=== PATIENT | female | born 1985 | race Caucasian/White ===

== ENCOUNTER 2023-10-31 09:10 | Day surgery (SDC) | payer BC ==
[2023-10-31] VITALS (7 sets, daily range): BP systolic 140–147; BP diastolic 74–83; PULSE 79–85; TEMP 97
[~2023-10-31] VITALS: Ht 172.7 cm; Wt 102.3 kg
[2023-10-31] MEDS ORDERED: Ketorolac 30 MG/ML VIAL IV ONE (09:45)
[2023-10-31] MEDS ORDERED: NS 1,000 ML IV ONE (09:45)
[2023-10-31 09:56] LABS: PH 6.5 (5.0-8.5); URINE APPEARANCE CLEAR (CLEAR/HAZY); URINE BLOOD NEGATIVE (NEGATIVE); URINE COLOR YELLOW (YELLOW); URINE GLUCOSE NEGATIVE (NEGATIVE); URINE KETONE NEGATIVE (NEGATIVE); URINE NITRATE NEGATIVE (NEGATIVE); URINE PROTEIN(semi-quant) NEGATIVE (NEGATIVE); URINE UROBILINOGEN 0.2 E.U/dL (0.2-1.0)
[2023-10-31 10:06] LABS: BASO # 0.1 K/mm3 (0.0-0.2); BASO % 0.4 % (0.0-2.0); EOS # 0.4 K/mm3 (0.0-0.7); EOS % 2.7 % (0.0-4.0); GRAN % 73.2 % (42.2-75.2); HEMATOCRIT 42.5 % (37.0-47.0); HEMOGLOBIN 13.8 g/dl (12.5-16.0); LYMPH # 2.6 K/mm3 (1.2-3.4); LYMPH % 17.1 % (20.0-51.0); MEAN CELL VOLUME 86 fl (80.0-100.0); MEAN CORPUSCULAR HEMOGLOBIN 28 pg (27-31); MEAN CORPUSCULAR HGB CONC 33 g/dl (33.0-37.0); MEAN PLATELET VOLUME 10.4 fl (7.4-10.4); MONO # 0.9 K/mm3 (0.1-0.6); MONO % 6.3 % (1.7-9.3); PLATELET COUNT 324 K/mm3 (130-400); RED BLOOD COUNT 4.96 M/mm3 (4.10-5.30); REDCELL DISTRIBUTION WIDTH-CV 13.2 % (11.5-14.5)
[2023-10-31 10:18] LABS: COLLECTION METHOD CLEAN CATCH
[2023-10-31 10:21] LABS: ALBUMIN 4.3 g/dL (3.5-5.0); BILIRUBIN,TOTAL 0.6 mg/dL (0.2-1.2); CREATININE, serum 0.84 mg/dL (0.57-1.11); TOTAL PROTEIN 8.2 g/dl (6.2-8.1)
[2023-10-31] MEDS ORDERED: NS 100 ML IV SCH (10:33)
[2023-10-31] MEDS ORDERED: Iohexol 300 - 100 ML VIAL IV ONE (10:33)
[2023-10-31] MEDS ORDERED: LR 1,000 ML IV SCH (11:00)
[2023-10-31] MEDS ORDERED: fentaNYL 50 MCG/ML 2 ML VIAL ONE ×2 (11:40→12:25)
[2023-10-31] MEDS ORDERED: Lidocaine PF 2% (20 MG/ML) 5 ML VIAL ONE (11:40)
[2023-10-31] MEDS ORDERED: Rocuronium 50 MG/5 ML Multi-Dose VIAL ONE (11:40)
[2023-10-31] MEDS ORDERED: Succinylcholine PF 200 MG/10 ML SYRINGE IV ONE (11:40)
[2023-10-31] MEDS ORDERED: Ondansetron 4 MG/2 ML VIAL ONE (12:10)
[2023-10-31] MEDS ORDERED: dexAMETHasone 10 MG/ML VIAL ONE (12:10)
[2023-10-31] MEDS ORDERED: Ketorolac 30 MG/ML VIAL ONE (12:23)
[2023-10-31] MEDS ORDERED: Topical Skin Adhesive 1 EACH (1 ML) TOP ONE (12:25)
[2023-10-31] MEDS ORDERED: HYDROmorphone 1 MG/1 ML SYRINGE [PACU/SDC ONLY] IV PRN (12:30)
[2023-10-31] MEDS ORDERED: fentaNYL 50 MCG/ML 1 ML SYRINGE/VIAL [PACU/SDC ONLY] IV PRN (12:30)
[2023-10-31] MEDS ORDERED: Ondansetron 4 MG/2 ML VIAL IV PRN ×2 (12:30→13:00)
[2023-10-31] MEDS ORDERED: hydrALAZINE 20 MG/ML 1 ML VIAL IV PRN (12:30)
[2023-10-31] MEDS ORDERED: Meperidine 50 MG/ML 1 ML VIAL IV PRN (12:30)
[2023-10-31] MEDS ORDERED: NORCO 325 MG-51 TAB PO (12:50)
[2023-10-31] MEDS ORDERED: Ibuprofen 600 MG TAB PO PRN (13:00)
[2023-10-31] MEDS ORDERED: Acetaminophen 325 MG TAB PO PRN (13:00)
--- NOTE | 2023-10-31 13:20 | NUR ---
pt admitted to room from pacu. pt a&ox4. denies pain but reports some nausea. x4 lap sites are cdi. med rec and admission assessment complete. pt tolerating ice chips. oriented to room. no needs at this time. call light in reach.
--- NOTE | 2023-10-31 14:01 | NUR ---
SW met with patient to complete intake. Patient states she lives in [facility] with spouse Jordan Velasquez [phone] who is also appointed as her DPOA/HC. Patient does not utilize DME, is independent with ADLs, and does not utilize home health services at this time. PCP is Dr. Alexander, and pharmacy is [facility]. Patient provides her plan is to return to her home upon discharge. Discharge plan: home with spouse per patient
--- NOTE | 2023-10-31 15:50 | NUR ---
INT discontinued. pt met all discharge requirements. pt denies pain. discharge instructions given to pt and , all questions answered. escorted to personal vehicle by wheelchair.
== END 2023-10-31 15:50 | disposition home or self-care (01) ==
LOC: COL.ER 09:10 → SDCO 12:03 → SURG 12:03 → COL.ER 12:03 → SURG 12:04 → SDCO 15:50
PROVIDERS: Emergency Medicine
DX: K35.80 Unspecified acute appendicitis (principal)
CPT/HCPCS: OP; G0378; J1100; J1885; J2405; J2543; J2704; J3010; J7030; Q9967